=== PATIENT | female | born 1985 | race Caucasian/White ===

== ENCOUNTER 2020-08-20 08:54 | Day surgery (SDC) | payer BC ==
[2020-08-20] VITALS (7 sets, daily range): BP systolic 81–115; BP diastolic 53–72; PULSE 78–98; TEMP 98–98.3
[~2020-08-20] VITALS: Ht 160 cm; Wt 95.3 kg
[~2020-08-20 08:54] MED LIST: NO HOME MEDICATIONS; NORCO 325 MG-51 TAB PO; PREVACID 30MG30 M1 PO; PROTONIX 40MG T40 MG PO; ZOFRAN4 M1 PO
--- NOTE | 2020-08-20 10:18 | NUR ---
Suicide risk assessment complete. Pt has had suicidal thoughts in the past during her college years. Pt denies any recent suicadal thoughts and denies need for social service consult. Encouraged pt to let nurse know if she would like assistance with any mental or emotional needs so that we can best take care of her if she would like it. Pt voices understanding.
[2020-08-20] MEDS ORDERED: ULTRAM 50MG TAB50 MG PO (13:53)
--- NOTE | 2020-08-20 14:45 | NUR ---
Pt to [facility] via cart from PACU. Pt drowsy, but awakens easily. Pt rates abdominal pain 2/10. Denies nausea. Pt tolerating ice chips. Lap sites x4 to abdomen are clean, dry, and with skin glue intact. Bear hugger on due to c/o being cold. Call light within reach.
--- NOTE | 2020-08-20 15:00 | NUR ---
Pt continues to rest. Sprite given per pt request. Pt attempts to cough. Cough is weak. Pt remains on 3 liters via nasal canula for oxygen. Will provide an IS and instruct pt on use to help with coughing/deep breathing post operatively.
--- NOTE | 2020-08-20 15:15 | NUR ---
Pt sleeping. Respirations even and unlabored. O2 on at 3 liters via nasal canula. Will continue to monitor. Call light within reach.
--- NOTE | 2020-08-20 15:30 | NUR ---
Pt awake. IS education done and pt shows correct retun demonstration. O2 decreased to 1 liter via nasal canula. Pudding given per pt request. Will continue to monitor. Call light within reach.
--- NOTE | 2020-08-20 16:00 | NUR ---
Pt consumed 100% of pudding. Denies nausea. Ultram 100mg po given per prn pain orders to pretreat pt's pain. She will be getting up to restroom soon and would like something on board to help with the pain. Pt uses IS again while nurse in room. O2 at 1 liter via nasal canula. Call light within reach.
--- NOTE | 2020-08-20 16:30 | NUR ---
Pt up to restroom with stand by assistance. Gait steady. Pt voids without difficulties. Pt back to room. Pt assisted with dressing.
--- NOTE | 2020-08-20 16:45 | NUR ---
Discharge instructions reviewed. Pt voices understanding. IV site discontinued with all parts intact.
--- NOTE | 2020-08-20 17:00 | NUR ---
Pt escorted to private car via wheel chair. Pt accompanied home by her friend Serene.
== END 2020-08-20 17:00 | disposition home or self-care (01) ==
LOC: SDCO 08:54
PROVIDERS: Surgery
DX: K43.2 Incisional hernia without obstruction or gangrene (principal); F32.9 Major depressive disorder, single episode, unspecified; E28.2 Polycystic ovarian syndrome; Z88.5 Allergy status to narcotic agent; Z91.040 Latex allergy status; K21.9 Gastro-esophageal reflux disease without esophagitis
CPT/HCPCS: C1781; J0690; J1100; J1885; J2405; J2704; J3010; J7120